=== PATIENT | female | born 1980 | race Caucasian/White ===

== ENCOUNTER → 2018-10-07 | Outpatient (REF) ==
[2018-10-08 10:15] LABS: RUBEOLA IgG ANTIBODY 27.6 AU/mL (Immune >29.9)
== END ==
LOC: M LAB 09:53
DX: Z00.00 Encounter for general adult medical examination without abnormal findings (principal)

== ENCOUNTER → 2021-09-14 | Outpatient (REF) | LOC: M EMP 10:51 | PROVIDERS: ATTEND Family Medicine | DX: Z20.822 Contact with and (suspected) exposure to COVID-19 (principal); Z11.52 Encounter for screening for COVID-19 ==

== ENCOUNTER → 2021-10-09 | Outpatient (REF) ==
[2021-10-09 09:18] LABS: RSV AMPLIFICATION NEGATIVE (NEGATIVE)
== END ==
LOC: M EMP 06:13
PROVIDERS: ATTEND Family Medicine
DX: Z20.822 Contact with and (suspected) exposure to COVID-19 (principal)

== ENCOUNTER → 2024-10-15 | Outpatient (CLI) | payer OTHER | LOC: M WHC 09:24 | PROVIDERS: ATTEND Nurse Practitioner Primary Care | DX: Z12.31 Encounter for screening mammogram for malignant neoplasm of breast (principal); N63.21 Unspecified lump in the left breast, upper outer quadrant ==

== ENCOUNTER → 2024-11-03 | Outpatient (CLI) | payer OTHER | LOC: M WHC 13:22 | PROVIDERS: ATTEND Nurse Practitioner Primary Care | DX: N63.23 Unspecified lump in the left breast, lower outer quadrant (principal); N63.24 Unspecified lump in the left breast, lower inner quadrant; R92.8 Other abnormal and inconclusive findings on diagnostic imaging of breast | CPT/HCPCS: 76642; 77065; G0279 ==